=== PATIENT | female | born 1945 | race Caucasian/White ===

== ENCOUNTER 2019-02-26 10:44 | Observation (INO) | payer MEDICARE ==
[~2019-02-26] VITALS: Ht 157.5 cm; Wt 104.2 kg
[~2019-02-26 10:44] MED LIST: AMBIEN 10MG10 MG PO; COZAAR100 MG PO; LEXAPRO20 MG PO; MOBIC 7.5MG7.5 MG PO; NEURONTIN600 MG/TAB PO; PROTONIX 40MG T40 MG PO; XANAX 0.5MG0.5 MG PO
[2019-02-26 12:54] LABS: BASO % 0.3 % (0.0-2.0); EOS # 0.2 (0.0-0.7); EOS % 1.5 % (0-4.0); GRAN # 10.5 (1.4-6.5); GRAN % 80.6 % (42.2-75.2); HEMOGLOBIN 10.6 g/dl (12.5-16.0); LYMPH # 1.4 (1.2-3.4); LYMPH % 10.8 % (20.0-51.0); MEAN CELL VOLUME 88 fl (80.0-100.0); MEAN CORPUSCULAR HEMOGLOBIN 29 pg (27.0-31.0); MEAN CORPUSCULAR HGB CONC 33 g/dl (33.0-37.0); MEAN PLATELET VOLUME 10.9 fl (7.4-10.4); MONO # 0.8 (0.1-0.6); MONO % 6.2 % (1.7-9.3); PLATELET COUNT 189 K/mm3 (130-400); RED BLOOD COUNT 3.62 M/mm3 (4.10-5.30); REDCELL DISTRIBUTION WIDTH-CV 13.9 % (11.5-14.5)
[2019-02-26 13:03] LABS: CALCIUM 8.2 mg/dL (8.4-10.2); CREATININE, serum 2.29 (0.52-1.25); POTASSIUM 3.6 mmol/L (3.4-5.0)
[2019-02-26] MEDS ORDERED: HYZAAR 25 MG-101 TAB PO (13:27)
[2019-02-26] MEDS ORDERED: CELEBREX 200MG200 MG PO ×2 (13:29→15:56)
[2019-02-26] MEDS ORDERED: NEURONTIN300 MG/CAP PO (13:29)
--- NOTE | 2019-02-26 13:30 | NUR ---
Patient admitted per Dr Heart office to room 322.2 Patient alert and oriented, answers questions appropriately. See assessment. Groin area with with redness, blistered areas and edema noted, painful and warm to touch. Payne catheter in place and draining clear yellow urine. Orders received. Dr Lara notified of consult. Patient c/o pain 5/10 to groin, especially with touch or movement. No other c/o at this time.
[2019-02-26] MEDS ORDERED: LIPITOR 40MG TA40 MG PO (13:31)
[2019-02-26] MEDS ORDERED: NORVASC 10MG10 MG PO (13:31)
[2019-02-26] MEDS ORDERED: ASPIRIN 81M81 MG/TA2 PO (13:32)
[2019-02-26] MEDS ORDERED: LOPRESSOR 225 MG/TAB PO (13:32)
[2019-02-26] MEDS ORDERED: ZOFRAN ODT8 MG PO (15:44)
[2019-02-26] MEDS ORDERED: ULTRAM 50MG TAB50 MG PO (15:52)
[2019-02-26] MEDS ORDERED: COLACE 100100 MG/CAP PO (15:54)
[2019-02-26] MEDS ORDERED: PROTONIX 40MG T40 MG PO (15:55)
[2019-02-26] MEDS ORDERED: TOPROL XL 25MG25 MG PO (15:57)
[2019-02-26] MEDS ORDERED: NORCO 325 MG-51 TAB PO (16:01)
[2019-02-26 16:06] VITALS: BP 92/44; PULSE 84; TEMP 98.4
[2019-02-26 16:08] VITALS: BP 92/44; PULSE 83
[2019-02-26 19:17] VITALS: BP 113/46; PULSE 83; TEMP 98.6
--- NOTE | 2019-02-26 20:00 | NUR ---
Report received. Assumed care for night shift manager. Assessment complete. VS stable-blood pressure remains low-113/46. C/O N/V- small amount of clear emesis noted-IV Zofran given per dr order. Also c/o pain to suprapubic area. Morphine given IV per dr order due to nausea. Suprapubic area noted to have some serous drainage-appears to have a blister that burst. Edema noted with redness/warmth. ABD pad in place. Denies shortness of breath. O2 @2l/NC. Daughter at bedside. Left AC IV infusing NS@100 ml/h-no redness or swelling noted. WIll monitor pain meds and nausea. Call light within reach. Bed alarm on. Wheels locked. Will monitor
[2019-02-26 23:50] VITALS: BP 114/50; PULSE 102; TEMP 98.9
[2019-02-27] VITALS (49 sets, daily range): BP systolic 115–145; BP diastolic 47–88; PULSE 90–133; TEMP 98.9–99.8; O2SAT 94–100
--- NOTE | 2019-02-27 03:00 | NUR ---
C/o pain to suprapubic area rating it 7/10. Also c/o nausea. Zofran and morphine given per dr order. Will monitor.
--- NOTE | 2019-02-27 04:08 | NUR ---
PT NOT ON A CPAP DUE TO FEELING NAUSCOUS
--- NOTE | 2019-02-27 05:00 | NUR ---
Has slept off and on this shift. Did c/o pain to suprapubic area-medicated with morphine per dr order. Also c/o of some nausea-had emesis x1 small amount of clear fluid. Daughter has remained at bedside. Denies needs at this time. Call light within reach. Bed in low position. Encouraged to call for questions or concerns. WIll monitor.
--- NOTE | 2019-02-27 08:00 | NUR ---
PATIENT IS RESTING IN BED WITH FAMILY PRESENT AT THE BEDSIDE. PATIENT IS A&OX4. TACHYCARDIA WITH IRREGULAR RHYTHM NOTED. SHALLOW, LABORED, TACHYPNIC BREATHING. PATIENT RESPOSITIONED IN BED. O2 VIA NASAL CANNULA. PATIENT IS PALE IN COLOR. BOWEL SOUNDS ACTIVE ALL FOUR QUADRANTS. PATIENT IS NAUSEATED AND DRY HEAVING. PATIENT GIVEN PRN ZOFRAN. SUPRA PUBIC AREA IS REDDENED, INFLAMED, SWOLLEN, WITH MULTIPLE CLOSED BLISTERS AND LARGE OPEN AREA THAT IS WHITE COLORED IN APPEARANCE AND DRAINING SEROSANGUINOUS FLUID. ABD PAD IN PLACE OVER SUPRA PUBIC AREA SATURATED. ABD PAD REMOVED AND REPLACED WITH NEW ABD PAD. INDWELLING REEVES CATHETER DRAINING YELLOW URINE TO CATHETER BAG. IV FLUIDS INFUSING TO LEFT AC IV VIA PUMP. CALL LIGHT WITHIN REACH.
[2019-02-27 09:03] LABS: BASO % 0.2 % (0.0-2.0); EOS # 0.2 (0.0-0.7); EOS % 2.1 % (0-4.0); GRAN # 8.4 (1.4-6.5); GRAN % 79.6 % (42.2-75.2); LYMPH # 1.2 (1.2-3.4); MEAN CELL VOLUME 89 fl (80.0-100.0); MEAN CORPUSCULAR HGB CONC 32 g/dl (33.0-37.0); MEAN PLATELET VOLUME 10.5 fl (7.4-10.4); MONO # 0.7 (0.1-0.6); MONO % 6.4 % (1.7-9.3); PLATELET COUNT 191 K/mm3 (130-400); RED BLOOD COUNT 3.34 M/mm3 (4.10-5.30); REDCELL DISTRIBUTION WIDTH-CV 13.9 % (11.5-14.5)
[2019-02-27 09:13] LABS: CREATININE, serum 1.55 (0.52-1.25); POTASSIUM 3.4 mmol/L (3.4-5.0)
[2019-02-27 09:25] LABS: HEMATOCRIT 29.8 % (37.0-47.0); HEMOGLOBIN 9.6 g/dl (12.5-16.0); MEAN CORPUSCULAR HEMOGLOBIN 29 pg (27.0-31.0)
--- NOTE | 2019-02-27 13:57 | NUR ---
REPORT CALLED TO TAMERA DIAZ.
--- NOTE | 2019-02-27 14:00 | NUR ---
PATIENT TRANSFERRED TO ICU BED 4.
--- NOTE | 2019-02-27 14:11 | NUR ---
Patient arrives to ICU 4 via bed and is transferred to ICU bed and placed on monitors. Initial assesment and vitals as charted. Prior report recieved from TAMERA Diaz. Dr. Lara present at this time. Suprapubic region with erythema, edema, heat, and multiple blisters mostly intact. Blisters x3 open with serous and purulent appearing drainage. Patient with disproportionate pain to wound appearance with rating 9/10 on pain scale. Reddend skin has several areas of purple coloring. Family at bedside and updated to POC. Care assumed at this time.
[2019-02-27 14:50] LABS: BASO % 0.3 % (0.0-2.0); EOS # 0.2 (0.0-0.7); EOS % 1.2 % (0-4.0); GRAN # 11.4 (1.4-6.5); GRAN % 84.8 % (42.2-75.2); HEMATOCRIT 33.1 % (37.0-47.0); HEMOGLOBIN 10.9 g/dl (12.5-16.0); LYMPH # 0.8 (1.2-3.4); MEAN CELL VOLUME 87 fl (80.0-100.0); MEAN CORPUSCULAR HEMOGLOBIN 29 pg (27.0-31.0); MEAN CORPUSCULAR HGB CONC 33 g/dl (33.0-37.0); MEAN PLATELET VOLUME 10.6 fl (7.4-10.4); MONO # 0.9 (0.1-0.6); MONO % 6.8 % (1.7-9.3); PLATELET COUNT 222 K/mm3 (130-400); RED BLOOD COUNT 3.79 M/mm3 (4.10-5.30); REDCELL DISTRIBUTION WIDTH-CV 13.9 % (11.5-14.5)
[2019-02-27 15:02] LABS: ALANINE AMINOTRANSFERASE < 6 U/L (9-52); ALBUMIN 2.9 gm/dL (3.5-5.0); ALKALINE PHOSPHATASE 67 U/L (50-136); ANION GAP 11 mmol/L (7-16); AST,SGOT 28 U/L (15-37); BILIRUBIN,TOTAL 0.7 mg/dL (0.0-1.0); BLOOD UREA NITROGEN 30 mg/dL (7-17); CALCIUM 8.3 mg/dL (8.4-10.2); CARBON DIOXIDE 23 mmol/L (22-30); CHLORIDE 99 mmol/L (98-107); CREATININE, serum 1.41 (0.52-1.25); GLUCOSE 114 mg/dL (74-106); POTASSIUM 3.6 mmol/L (3.4-5.0); SODIUM 133 mmol/L (137-145)
--- NOTE | 2019-02-27 15:27 | NUR ---
Patient departs with OR team for planned procedure. Chart with consent sent with. Family showed to waiting room.
[2019-02-27 15:36] LABS: C-REACTIVE PROTEIN 41.9 mg/dL (0.0-0.9)
--- NOTE | 2019-02-27 19:25 | NUR ---
Report provided to TAMERA Wallace.
--- NOTE | 2019-02-27 19:35 | NUR ---
Patient arrived from OR at 1855 accompanied by OR staff. Assumed care of patient at that time. *1935: Assessment completed and charted at this time, please see documentation for details. Dr. Espinoza and SHAHZAD Rodriguez outside of room at this time. Transportation is being arranged for patient to higher level of care.
[2019-02-27 19:45] LABS: INR 1.5 (0.8-3.0); PROTHROMBIN TIME 17.7 SECONDS (9.7-12.8)
[2019-02-27 20:47] LABS: ARTERIAL BLD GAS O2 SATURATION 91.4 % (92-100); ARTERIAL BLD GAS TCO2 CT 24.6; ARTERIAL BLOOD GAS BASE EXCESS 0.2 (-2-2); ARTERIAL BLOOD GAS HCO3 23.5 meq/L (22-26); ARTERIAL BLOOD GAS PCO2 34.1 mmHg (35-45); ARTERIAL BLOOD GAS PO2 61.5 mmHg (80-100); ARTERIAL BLOOD GAS pH 7.46 (7.35-7.45)
--- NOTE | 2019-02-27 22:12 | NUR ---
Patient taken by [facility] at this time, family notified of departure. *2225: Report called to [facility] at this time.
== END 2019-02-27 22:12 | disposition short-term general hospital (02) ==
LOC: SURG 10:44 → ICU 02-27 13:47
PROVIDERS: Internal Medicine Pulmonary Disease; Physician Assistant; ADMIT Urology
DX: M72.6 Necrotizing fasciitis (principal); K43.9 Ventral hernia without obstruction or gangrene; N76.89 Other specified inflammation of vagina and vulva; I48.91 Unspecified atrial fibrillation; N39.46 Mixed incontinence; N36.42 Intrinsic sphincter deficiency (ISD); I10 Essential (primary) hypertension; K21.9 Gastro-esophageal reflux disease without esophagitis; G47.33 Obstructive sleep apnea (adult) (pediatric); F32.9 Major depressive disorder, single episode, unspecified; F41.9 Anxiety disorder, unspecified; E78.5 Hyperlipidemia, unspecified; Z79.82 Long term (current) use of aspirin; Z96.653 Presence of artificial knee joint, bilateral; Z90.710 Acquired absence of both cervix and uterus; E03.9 Hypothyroidism, unspecified; M19.90 Unspecified osteoarthritis, unspecified site; Z83.3 Family history of diabetes mellitus; Z82.49 Family history of ischemic heart disease and other diseases of the circulatory system; Z80.9 Family history of malignant neoplasm, unspecified; Z86.73 Personal history of transient ischemic attack (TIA), and cerebral infarction without residual deficits
CPT/HCPCS: 99222; 99233-AI; A4216; A4314; A9284; C1751; G0378; G0379; J0696; J1100; J1450; J2185; J2250; J2270; J2405; J2704; J3010; J3370; J7030; J7050